=== PATIENT | female | born 1970 ===

== ENCOUNTER → 2017-01-30 | Outpatient (CLI) | payer OTHER ==
--- NOTE | 2017-01-30 16:06 | MAMMOGRAPHY REPORT ---
BILATERAL DIGITAL DIAGNOSTIC MAMMOGRAM TOMOSYNTHESIS WITH CAD AND TARGETED LEFT ULTRASOUND: 01/30/2017 CLINICAL HISTORY: Patient presents for bilateral mammography including spot magnification views to e nsure stability of multiple bilateral clusters of microcalcifications. Patient has a history of sharlene ign stereotactic biopsy in the 12:00 far posterior axis of the left breast. TECHNIQUE: Bilateral CC and MLO 2-D digital and tomosynthesis images, bilateral spot magnification C C and ML views were obtained. Current study was also evaluated with a Computer Aided Detection (CAD ) system. COMPARISON: Comparison is made to exams dated: 08/02/2016 mammogram, 08/02/2016 ultrasound, 02/08/2016 mammogram, 02/08/2016 stereotactic biopsy, 01/26/2016 ultrasound, and 01/26/2016 mammogram - [facility]. BREAST COMPOSITION: The tissue of both breasts is heterogeneously dense, which may obscure small ma sses. FINDINGS: There is a stable dumbbell-shaped metallic biopsy marker in the 12:00 far posterior/retroa reolar left breast, denoting the site of prior biopsy which yielded columnar cell hyperplasia and fi brocystic change. Based on the spot magnification views of the left breast, most of the biopsied cl uster of microcalcifications located 3 mm posterior to the biopsy marker clip persists, but is uncha nged in number and size comparing to the spot magnification views performed 01/26/2016. The cluster measures 2.2 mm. There are other punctate microcalcifications scattered throughout the visualized left breast. No new suspicious grouping or cluster. A circumscribed mass in the lateral left breas t appears slightly increased compared to the prior exam and therefore targeted ultrasound was again performed in the lateral left breast. No focal area of architectural distortion. There are several clusters of microcalcifications again seen in the right breast, with the dominant, 2.5 mm cluster in the upper outer posterior breast containing round and oval microcalcifications. This cluster appears unchanged in number dating back to at least 01/26/2016, therefore likely benign . No obvious new suspicious mass, focal area of architectural distortion or developing asymmetry is seen in the right breast. Targeted ultrasound was performed in the lateral left breast. In the 3:00 axis, 1 cm from the nippl e, in oval circumscribed benign anechoic simple cyst is again identified measuring 7.5 x 8.7 x 4.4 m m. This is minimally increased in size compared to the prior ultrasound at which time it measured 8 .1 x 3.5 x 6.4 mm. No other suspicious solid or cystic mass is seen throughout the lateral left jay ast on ultrasound. IMPRESSION: ACR-BI-RADS CATEGORY 3: PROBABLY BENIGN, TARGETED ULTRASOUND ACR-BI-RADS CATEGORY 3: NE OBABLY BENIGN Stable mammographic appearance of the breasts including 2 mm clusters of microcalcifications in the 12:00 far posterior left breast, and upper outer posterior right breast. Another 12 month follow-up diagnostic mammogram including bilateral spot magnification views is recommended to ensure longer s tability. These results and recommendations were discussed with the patient at the time of the exam. She tent atively scheduled a follow-up appointment prior to leaving our department. Approximately 10% of breast cancers are not detected with mammography. A negative mammographic repor t should not delay biopsy if a clinically suggestive mass is present. Anna Cramer M.D. ay/:01/30/2017 14:54:03 Inspector Boiler: Bernice RAMIREZ(Bubba)(M), [facility] letter sent: Follow Up Recommended 3 BI-RADS Code: ACR-BI-RADS Category 3: Probably Benign Ultrasound BI-RADS: ACR-BI-RADS Category 3: P robably Benign
== END | disposition home or self-care (01) ==
LOC: C.MAMM 13:48
PROVIDERS: ATTEND Obstetrics & Gynecology
DX: R92.0 Mammographic microcalcification found on diagnostic imaging of breast (principal)

== ENCOUNTER → 2018-01-31 | Outpatient (CLI) | payer OTHER | END | disposition home or self-care (01) | LOC: C.MAMM 14:09 | PROVIDERS: ATTEND Obstetrics & Gynecology | DX: R92.8 Other abnormal and inconclusive findings on diagnostic imaging of breast (principal) ==

== ENCOUNTER → 2018-02-09 | Outpatient (CLI) | payer OTHER ==
--- NOTE | 2018-02-09 13:19 | Discharge Instructions ---
Discharge Instructions Procedure Procedure Date: February 09, 2018. Reason for visit: Right Calcs. Discharge Discharge Date: February 09, 2018. Discharge Diagnosis: status post breast biopsy Instructions Activity Recommendations: Additional Limitations (see below) Return to School/Work: no limitations Recommended Home Diet: No Limitations Provider Instructions: ACTIVITY RECOMMENDATIONS: * No lifting, pushing, pulling or exercising the affected side for three days. RETURN TO SCHOOL/WORK: * You may return to work/school after the procedure, but do not perform any strenuous activities for 24 to 48 hours. MEDICATIONS: * Tylenol (two 325 mg) every four to six hours if needed for mild pain (if not allergic to Tylenol). DIET: * Resume previous diet. SPECIAL CARE INSTRUCTIONS: * Keep biopsy site dry for 24 hours. May shower after 24 hours, but do not soak (bathe) incision. * May remove Tegaderm (plastic patch) tomorrow AFTER showering. * Leave the steri-strips on for one week. Allow the steri-strips to fall off by themselves. If not off after one week, you may remove them. You may place a Bandaid crosswise over the strips, if desired. * Apply ice 10 minutes on and 10 minutes off as needed. * Wear a bra at bedtime to sleep more comfortably for 2-3 days. * Your referring physician should have the results after approximately 5 to 7 business days. * Call for unusual bleeding, fever, drainage, etc or if you have any questions call during normal business hours or after hours call Dr Canada, . FOLLOW UP VISIT: Follow-up with Referring Physician as scheduled. Royce Joely Recommendations: Call your doctor if: * Temperature above 101 degrees * Pain not relieved by pain medicine ordered * There is increased drainage or redness from any incision * You have any unanswered questions or concerns. Your Doctors Instructions noted above were prepared by provider Laury Canada. Patient Signature Section: Patient Instructions Signature Page Maureen Rhoades Patient (or Guardian) Signature/Date: I have read and understand the instructions given to me by my caregivers. Caregiver/RN/Doctor Signature/Date: The above-named patient and/or guardian has received patient instructions on this date. + Original Patient Signature Page (only) stays with chart. Please make copy for patient.
--- NOTE | 2018-02-09 15:13 | MAMMOGRAPHY REPORT ---
STEREOTACTIC GUIDED BIOPSY RIGHT BREAST: 02/09/2018 CLINICAL HISTORY: Indeterminate calcifications in the right 12:00 breast. PATIENT CONSENT: The procedure, risks, benefits, and alternatives of stereotactic biopsy with clip pl acement were discussed with the patient, and verbal and written consent was obtained. A timeout was performed immediately prior to the procedure. PROCEDURE DESCRIPTION: With stereotactic guidance, aseptic technique, and lidocaine as a local anesth etic (1% lidocaine to anesthetize the skin and 1% lidocaine with epinephrine to anesthetize the deepe r tissues), the calcifications of concern in the right 12:00 breast posteriorly were sampled multiple times with a 9-gauge vacuum-assisted biopsy needle ([employer] Eviva petite). The path of approach was l ateral. The specimen radiograph demonstrates calcifications to be present in the samples. A metalli c marker clip was placed at the biopsy site. This was confirmed on postprocedure mammograms. Direct pressure was applied at the biopsy site and hemostasis was readily achieved. The patient tolerated the procedure without immediate complication. She was given wound care instructions. COMPARISON: Comparison is made to exams dated: 01/31/2018 mammogram, 01/30/2017 mammogram, 01/30/2017 ultr asound, 08/02/2016 mammogram, 08/02/2016 ultrasound, and 02/08/2016 mammogram - [facility]ter. IMPRESSION: STEREOTACTIC GUIDED BIOPSY Stereotactic biopsy of indeterminate calcifications in the right 12:00 breast, with clip placement. The patient will receive pathology results from her referring provider. Laury Canada M.D. /:02/09/2018 13:19:59 Make Up Worker: Bernice Desai, [facility]
--- NOTE | 2018-02-09 15:15 | MAMMOGRAPHY REPORT ---
UNILATERAL RIGHT DIGITAL DIAGNOSTIC MAMMOGRAM: 02/09/2018 CLINICAL HISTORY: Status post right breast stereotactic biopsy. TECHNIQUE: Postprocedural right CC and ML views were obtained. COMPARISON: Comparison is made to exams dated: 01/31/2018 mammogram, 01/30/2017 mammogram, 08/02/2016 tha mogram, 02/08/2016 mammogram, and 01/26/2016 mammogram - [facility]. BREAST COMPOSITION: The tissue of the right breast is heterogeneously dense, which may obscure small masses. FINDINGS: A new biopsy marker clip is seen at the site of the biopsied calcifications in the right odom perior breast at approximately 12:00. No significant postbiopsy hematoma is seen. IMPRESSION: POST PROCEDURE IMAGING FOR MARKER PLACEMENT New biopsy marker clip status post right breast stereotactic biopsy. Pathology results are pending. Approximately 10% of breast cancers are not detected with mammography. A negative mammographic report should not delay biopsy if a clinically suggestive mass is present. Laury Canada M.D. ah/:02/09/2018 13:50:48 Web Publisher: Bernice Desai, [facility] BI-RADS Code: Post Procedure Imaging For Marker Placement
== END | disposition home or self-care (01) ==
LOC: C.MAMM 12:34
PROVIDERS: ATTEND Obstetrics & Gynecology
DX: R92.0 Mammographic microcalcification found on diagnostic imaging of breast (principal)